=== PATIENT | female | born 1955 | race American Indian/Alaskan Native ===

== ENCOUNTER 2020-09-02 13:56 | Outpatient (CLI) | payer BC ==
--- NOTE | 2020-09-02 16:43 | Magnetic Resonance Report ---
MRI right knee without contrast INDICATION: RIGHT KNEE PAIN. COMPARISON: None FINDINGS: There is mild tricompartmental degenerative arthrosis with no acute osseous abnormality or malalignment. There is a small joint effusion and synovitis, likely reactive. A trace popliteal morenita a cyst is present. Subcutaneous venous varices are also present. There is an irregular tear of the posterior horn of the lateral meniscus with an unstable radial comp onent. The medial meniscus is intact. The collateral ligaments, cruciate ligaments, and extensor mechanism are all intact. IMPRESSION: Tricompartmental DJD with lateral meniscal tear. Signer Name: Layton Gibbs MD Signed: 09/02/2020 4:38 PM Workstation Name: [id number]
== END 2020-09-02 13:57 | disposition home or self-care (01) ==
LOC: MRI 13:56
PROVIDERS: ATTEND Orthopaedic Surgery
DX: S83.241A Other tear of medial meniscus, current injury, right knee, initial encounter (principal); M25.461 Effusion, right knee; M17.11 Unilateral primary osteoarthritis, right knee; M65.88 Other synovitis and tenosynovitis, other site; X58.XXXA Exposure to other specified factors, initial encounter; Y93.89 Activity, other specified; Y92.89 Other specified places as the place of occurrence of the external cause; Y99.8 Other external cause status
CPT/HCPCS: 73721